=== PATIENT | male | born 1970 | race Two or more races ===

== ENCOUNTER 2018-05-25 16:55 | Inpatient (IN) | payer OTHER ==
[~2018-05-25] VITALS: Ht 172.7 cm; Wt 104.0 kg
[2018-05-25] MEDS ORDERED: NITROGLYCERIN 0.4 MG SL TAB SL PRN (18:15)
[2018-05-25] MEDS ORDERED: MORPHINE SULF INJ 2 MG/ML SYRINGE 1ML IV PRN (18:15)
[2018-05-25 20:30] VITALS: BP 151/97
[2018-05-25 21:49] VITALS: BP 151/97
[2018-05-25] MEDS ORDERED: FAMOTIDINE 20 MG TAB PO ONE (22:00)
[2018-05-25] MEDS: CIPROFLOXACIN 400MG/200ML 200 ML IV SCH (23:02)
[2018-05-26] MEDS ORDERED: MEPERIDINE HCL (25 MG/ML) 1ML VIAL IV ONE
[2018-05-26] MEDS ORDERED: ONDANSETRON HCL 4 MG/2 ML VIAL IV ONE (02:00)
[2018-05-26] MEDS ORDERED: HYDROcodone-ACET 5/325MG TAB PO ONE (02:00)
[2018-05-26 04:34] VITALS: BP 125/76
[2018-05-26 08:30] VITALS: BP 139/87
[2018-05-26] MEDS ORDERED: ENOXAPARIN SOD 40 MG/0.4 ML SYRINGE SC ONE (10:00)
[2018-05-26] MEDS: CIPROFLOXACIN 400MG/200ML 200 ML IV SCH ×2 (11:00→22:01)
[2018-05-26 12:30] VITALS: BP 126/80
[2018-05-26 16:34] VITALS: BP 136/82
[2018-05-26 22:00] VITALS: BP 134/84
[2018-05-27 05:05] VITALS: BP 131/87
[2018-05-27 05:49] LABS: Basophils # (auto) 0 uL; Basophils % (auto) 0.7 % (0.0-2.0); Eosinophils # (auto) 0.2 uL; Eosinophils % (auto) 3.2 % (0.0-7.0); Hematocrit 43.7 % (41.0-53.0); Hemoglobin 14.7 g/dL (13.5-17.5); Lymphocytes # (auto) 1.7 uL; Mean Corpuscular Hemoglobin 28.4 pg (28.0-32.0); Mean Corpuscular Hgb Conc. 33.6 g/dL (32.0-36.0); Mean Corpuscular Volume 84.6 fL (80.0-100.0); Monocytes # (auto) 0.4 uL; Monocytes % (auto) 7.7 % (0.0-12.0); Neutrophils # (auto) 3.1 uL; Neutrophils % (auto) 57.4 % (37.0-80.0); Nucleated Red Blood Cells % 0.1 %; Platelet Count (auto) 144 10^3/uL (140-450); Red Blood Cells 5.16 10^6/uL (4.5-5.90); Red Cell Distribution Width 14.9 % (11.8-14.3); White Blood Cell 5.4 10^3/uL (4.4-10.8)
[2018-05-27 06:28] LABS: Albumin 3.3 g/dL (3.4-5.0); BUN/Creatinine Ratio 17.6; Bilirubin, Total 0.7 mg/dL (0.2-1.0); Calcium 8.3 mg/dL (8.5-10.1)
[2018-05-27 08:00] VITALS: BP_SYST 101; BP_SYST 135; BP_DIAS 66; BP_DIAS 79
[2018-05-27] MEDS: CIPROFLOXACIN 400MG/200ML 200 ML IV SCH ×2 (10:47→22:19)
[2018-05-27 12:00] VITALS: BP 141/84
[2018-05-27 16:00] VITALS: BP 138/85
[2018-05-27 22:00] VITALS: BP 129/87
[2018-05-28 02:55] LABS: INR 0.95 (0.9-1.15); Prothrombin Time 10.2 sec (9.27-12.13)
[2018-05-28 05:00] VITALS: BP 143/89
[2018-05-28 08:12] VITALS: BP 128/82
[2018-05-28] MEDS: CIPROFLOXACIN 400MG/200ML 200 ML IV SCH (10:00)
[2018-05-28 12:29] VITALS: BP 122/76
[2018-05-28 17:15] VITALS: BP 137/90
[2018-05-28] MEDS ORDERED: VANCOMYCIN PER PHARMACY 0 MG IV SCH (17:45)
[2018-05-28] MEDS: VANCOMYCIN 1,250 MG in D5W 5% 250 ML IV SCH (20:38)
[2018-05-28 21:55] VITALS: BP 127/75
[2018-05-28] MEDS ORDERED: VANCOMYCIN 1GM/250ML 250 ML IV SCH (22:00)
[2018-05-29 05:00] VITALS: BP 134/84
[2018-05-29 07:53] VITALS: BP 129/95
[2018-05-29] MEDS: VANCOMYCIN 1,250 MG in D5W 5% 250 ML IV SCH ×2 (08:11→19:58)
[2018-05-29 12:00] VITALS: BP 127/70
[2018-05-29] MEDS ORDERED: PROPOFOL 10 MG/ML 20 ML IV ONE (16:00)
[2018-05-29] MEDS ORDERED: LIDOCAINE 2% (LOCAL ANESTH.) PF 5ml SDV ONE (16:00)
[2018-05-29] MEDS ORDERED: ROCURONIUM 10MG/ML 10ML VIAL IV ONE (16:00)
[2018-05-29] MEDS ORDERED: fentaNYL CITRATE 5 ML ONE (16:00)
[2018-05-29] MEDS ORDERED: ceFAZolin 1GM VL ONE (16:21)
[2018-05-29] MEDS ORDERED: SODIUM CHLORIDE LOCK 20 ML ONE (16:21)
[2018-05-29] MEDS ORDERED: hydrALAZINE HCL 20 MG/ML VL IV PRN (17:15)
[2018-05-29] MEDS ORDERED: NALOXONE HCL 0.4 MG/ML VIAL IV PRN (17:15)
[2018-05-29] MEDS ORDERED: KETOROLAC TROMETH 30 MG/ML 1ML VIAL IV ONE (17:15)
[2018-05-29] MEDS ORDERED: METOCLOPRAMIDE HCL 5MG/ml INJ 2ml VIAL IV ONE (17:15)
[2018-05-29] MEDS ORDERED: HYDROmorphone HCL 2 MG/ML VL IV PRN (17:15)
[2018-05-29] MEDS ORDERED: LABETALOL HCL 5 MG/ML 4ML SYRINGE IV PRN (17:15)
[2018-05-29] MEDS ORDERED: ONDANSETRON HCL 4 MG/2 ML VIAL IV ONE (17:15)
[2018-05-29 17:47] VITALS: BP 139/81
[2018-05-29] MEDS: LACTATED RINGER'S 1,000 ML IV SCH (17:55)
[2018-05-29 22:00] VITALS: BP_SYST 121; BP_SYST 135; BP_DIAS 78; BP_DIAS 90
[2018-05-29] MEDS: SODIUM CHLOR 0.9% PF (SALINE LOCK) 10ML VIAL/SYR IV SCH (22:00)
[2018-05-29] MEDS ORDERED: traMADol HCL 50 MG TAB PO PRN (22:15)
[2018-05-29] MEDS ORDERED: HYDROcodone-ACET 5/325MG TAB PO PRN (22:15)
[2018-05-30] MEDS: LACTATED RINGER'S 1,000 ML IV SCH ×3 (02:38→22:38)
[2018-05-30 05:00] VITALS: BP 135/83
[2018-05-30] MEDS: SODIUM CHLOR 0.9% PF (SALINE LOCK) 10ML VIAL/SYR IV SCH ×3 (06:00→21:51)
[2018-05-30 06:10] LABS: Potassium 3.9 mmol/L (3.5-5.1)
[2018-05-30 06:14] LABS: BUN/Creatinine Ratio 15.7
[2018-05-30] MEDS: VANCOMYCIN 1,250 MG in D5W 5% 250 ML IV SCH ×2 (08:13→20:00)
[2018-05-30 08:41] VITALS: BP 148/87
[2018-05-30 12:43] VITALS: BP 149/62
[2018-05-30 17:02] VITALS: BP 138/85
[2018-05-30 22:00] VITALS: BP 124/80
[2018-05-31 05:00] VITALS: BP_SYST 138; BP_SYST 92; BP_DIAS 61; BP_DIAS 84
[2018-05-31] MEDS: SODIUM CHLOR 0.9% PF (SALINE LOCK) 10ML VIAL/SYR IV SCH ×3 (05:58→22:00)
[2018-05-31 06:19] LABS: Basophils # (auto) 0 uL; Basophils % (auto) 0.8 % (0.0-2.0); Eosinophils # (auto) 0.2 uL; Eosinophils % (auto) 2.7 % (0.0-7.0); Hematocrit 41.2 % (41.0-53.0); Hemoglobin 14.1 g/dL (13.5-17.5); Lymphocytes # (auto) 1.6 uL; Lymphocytes % (auto) 26.9 % (10.0-50.0); Mean Corpuscular Hemoglobin 28.9 pg (28.0-32.0); Mean Corpuscular Hgb Conc. 34.2 g/dL (32.0-36.0); Mean Corpuscular Volume 84.6 fL (80.0-100.0); Monocytes # (auto) 0.5 uL; Monocytes % (auto) 7.7 % (0.0-12.0); Neutrophils # (auto) 3.8 uL; Neutrophils % (auto) 61.9 % (37.0-80.0); Nucleated Red Blood Cells % 0.1 %; Platelet Count (auto) 146 10^3/uL (140-450); Red Blood Cells 4.88 10^6/uL (4.5-5.90); Red Cell Distribution Width 14.7 % (11.8-14.3); White Blood Cell 6.1 10^3/uL (4.4-10.8)
[2018-05-31 06:46] LABS: BUN/Creatinine Ratio 16.3; Calcium 8.2 mg/dL (8.5-10.1)
[2018-05-31] MEDS: VANCOMYCIN 1,250 MG in D5W 5% 250 ML IV SCH ×2 (07:59→20:00)
[2018-05-31 08:30] VITALS: BP 143/98
[2018-05-31] MEDS: LACTATED RINGER'S 1,000 ML IV SCH ×2 (08:38→18:38)
[2018-05-31 12:30] VITALS: BP 133/87
[2018-05-31 16:37] VITALS: BP 151/89
[2018-05-31 21:30] VITALS: BP 137/76
[2018-06-01 05:00] VITALS: BP 137/89
[2018-06-01] MEDS: VANCOMYCIN 1,250 MG in D5W 5% 250 ML IV SCH (08:29)
[2018-06-01 09:00] VITALS: BP 149/76
[2018-06-01 10:35] VITALS: BP 149/76
== END 2018-06-01 11:35 | DRG 908 ==
LOC: ER 17:39 → EEVIPCON 17:39 → OVERFLOW 17:40 → EAST 20:50
PROVIDERS: ADMIT Specialist; ATTEND Specialist
PROC: BQ1FZZZ Fluoroscopy of Left Lower Leg (ICD-10-PCS; 2018-05-29)
PROC: 0QPH05Z Removal of External Fixation Device from Left Tibia, Open Approach (ICD-10-PCS; principal; 2018-05-29 16:00)
DX: T85.848A Pain due to other internal prosthetic devices, implants and grafts, initial encounter (principal); L03.116 Cellulitis of left lower limb; Z88.0 Allergy status to penicillin; Y83.1 Surgical operation with implant of artificial internal device as the cause of abnormal reaction of the patient, or of later complication, without mention of misadventure at the time of the procedure; Y92.89 Other specified places as the place of occurrence of the external cause; Z86.14 Personal history of Methicillin resistant Staphylococcus aureus infection
CPT/HCPCS: 36415; 71045; 73590; 73600; 73620; 76000; 80048; 80053; 80202; 85025; 85610; 85652; 85730; 86141; 86850; 86900; 86901; 87081; 96372; A6257; J0690; J1885; J2001; J2704; J7060